=== PATIENT | male | born 2000 | race Caucasian/White ===

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

== ENCOUNTER 2022-02-06 20:47 | Emergency (ER) | payer MEDICAID, OTHER ==
[2022-02-06 21:37] VITALS: BP 140/92; PULSE 69
[2022-02-06] MEDS ORDERED: HYDROmorphone 1 MG/ML Syringe IM ONE (22:08)
== END 2022-02-06 22:43 | disposition home or self-care (01) ==
LOC: JP.ED 20:47
DX: K08.89 Other specified disorders of teeth and supporting structures (principal); S00.81XA Abrasion of other part of head, initial encounter; S00.512A Abrasion of oral cavity, initial encounter; F17.210 Nicotine dependence, cigarettes, uncomplicated; Z88.0 Allergy status to penicillin
CPT/HCPCS: 96372; 99282; J1170

== ENCOUNTER 2022-02-09 08:19 | Emergency (ER) | payer OTHER ==
[2022-02-09 08:51] VITALS: BP 134/79; PULSE 81
== END 2022-02-09 09:45 | disposition home or self-care (01) ==
LOC: JP.ED 08:19
DX: K04.7 Periapical abscess without sinus (principal); F17.210 Nicotine dependence, cigarettes, uncomplicated; Z88.0 Allergy status to penicillin
CPT/HCPCS: 99282